=== PATIENT | female | born 1935 | race Caucasian/White ===

== ENCOUNTER 2017-03-01 07:38 | Inpatient (IN) | payer MEDICARE ==
[~2017-03-01] VITALS: Ht 157.5 cm; Wt 84.8 kg
[~2017-03-01 07:38] MED LIST: AMIT50TA PO; ATOR10TA PO; CHOL20003 PO; DILT120C PO; FURO-80 PO; FURO40TA4 PO; OMEP20CA12 PO; POTA20PA8 PO; POTA20TA14 PO; WARF3TAB7 PO; [UNRECOGNIZED DRUG - CODE] PO
--- NOTE | 2017-03-01 07:45 | NUR ---
ARRIVAL PT AMBULATED FAIRLY WELL WITH A WALKER ACCOMPANIED BY DAUGHTERS. PT ALERT AND COOP. MILD DISTRESS NOTED. ATTEMPTED TO OBTAIN URINE SAMPLE. PT UNABLE AT THIS TIME. PT PLACED ON MONITOR AND TRIAGE DONE
[2017-03-01 08:47] LABS: BASOPHIL % 0.5 % (0.0-0.2); EOSINOPHIL # 0.1 10^3/uL (0.0-0.2); EOSINOPHIL % 2.1 % (0.0-5.0); HEMATOCRIT 33.5 % (36.0-46.0); LYMPHOCYTES # 0.7 10^3/uL (1.0-4.8); LYMPHOCYTES % 11.4 % (24.0-44.0); MEAN CELL HGB 30.1 pg (26-34); MEAN CELL HGB CONCENTRATION 32.8 g/dL (33-37); MEAN CORP VOLUME 91.8 fL (78-100); MEAN PLATELET VOLUME 9.5 fL (7.8-11.0); MONOCYTES # 0.7 10^3/uL (0.3-0.8); MONOCYTES % 10.9 % (5.0-12.0); NEUTROPHIL # 4.6 10^3/uL (1.8-7.7); NEUTROPHILS % 74.9 % (41.0-85.0); RED CELL DISTRIBUTION WIDTH 15.1 % (11.5-14.5); WHITE BLOOD CELL 6.2 10^3/uL (4.5-11.0)
--- NOTE | 2017-03-01 09:11 | ER.PDOC ---
General Chief Complaint: Fever Stated Complaint: COUGH,LOW BACK PAIN Time seen by MD: 09:10 Source: patient Exam Limitations: no limitations History of Present Illness Initial Comments Cough and low back pain since yesterday. Timing/Duration: abrupt Severity: moderate Associated Symptoms: cough Allergies: Coded Allergies: erythromycin base (Verified Allergy, Severe, BLACK STOOL, 03/13/16) Sulfa (Sulfonamide Antibiotics) (Verified Allergy, Unknown, BLACK STOOL, ) Home Meds Reported Medications Potassium Chloride (POTASSIUM CHLORIDE) 20 Meq Tab.er.prt, 20 MEQ PO DAILY, #30 1 Refill 08/04/16 Furosemide (LASIX) 40 Mg Tablet, 1 TAB PO DAILY, #30 TAB 5 Refills 08/04/16 Cholecalciferol (Vitamin D3) (VITAMIN D-3) 2,000 Unit Capsule, 1000 UNIT PO DAILY, CAPSULE 08/03/16 Calcium Carbonate/Vitamin D3 (CALCIUM 500 + VIT D CAPLET) 1 Each Tablet, 1 EACH PO TID, TABLET 08/03/16 Omeprazole (OMEPRAZOLE) 20 Mg Capsule.dr, 1 CAP PO DAILY, #90 CAP 3 Refills 08/03/16 Atorvastatin 10MG (LIPITOR 10MG) 10 Mg Tablet, 1 TAB PO DAILY, #90 TAB 3 Refills 08/03/16 Amitriptyline Hcl (AMITRIPTYLINE HCL) 50 Mg Tablet, 1 TAB PO HS, #30 TAB 2 Refills 08/03/16 Diltiazem Hcl (DILTIAZEM 24HR ER) 120 Mg Cap.er.24h, 1 CAP PO DAILY, #90 CAP 3 Refills 08/03/16 Warfarin Sodium (WARFARIN SODIUM) 3 Mg Tablet, 1 TAB PO DAILY, #90 TAB 3 Refills 08/03/16 Constitutional: no symptoms reported Respiratory: see HPI Cardiovascular: no symptoms reported Gastrointestinal: no symptoms reported Genitourinary: no symptoms reported Musculoskeletal: see HPI All Other Systems: Reviewed and Negative Past Medical History Medical History: arrhythmia, congestive heart failure, diabetes, high cholesterol, hypertension Surgical History: cancer surgery, hysterectomy LMP (females 10-50): postmenopause Social History Smoking: non-smoker Alcohol Use: none Drug Use: none Physical Exam General Appearance: alert, no distress Nose: nose nml Throat: pharynx nml, airway nml Neck: nml inspection, supple Respiratory: no resp.distress, breath sounds nml Abdomen: non-tender, no organomegaly CVS: reg rate & rhythm, heart sounds nml Skin: color nml, no rash, warm/dry Extremities: non-tender, nml ROM, no pedal edema NEURO/PSYCH: oriented x 3, CN's nml as tested, motor nml, sensation nml, mood/ affect nml Comments Tenderness to L spine Results/Orders Results/Orders Laboratory Tests Test 03/01/17 08:39 White Blood Count 6.2 10^3/uL (4.5-11.0) Red Blood Count 3.65 10^6/uL (4.00-5.20) Hemoglobin 11.0 g/dL (12.0-15.0) Hematocrit 33.5 % (36.0-46.0) Mean Corpuscular Volume 91.8 fL (78-100) Mean Corpuscular Hemoglobin 30.1 pg (26-34) Mean Corpuscular Hemoglobin Concent 32.8 g/dL (33-37) Red Cell Distribution Width 15.1 % (11.5-14.5) Platelet Count 284 10^3/uL (150-400) Mean Platelet Volume 9.5 fL (7.8-11.0) Neutrophils (%) (Auto) 74.9 % (41.0-85.0) Lymphocytes (%) (Auto) 11.4 % (24.0-44.0) Monocytes (%) (Auto) 10.9 % (5.0-12.0) Neutrophils # (Auto) 4.6 10^3/uL (1.8-7.7) Lymphocytes # (Auto) 0.7 10^3/uL (1.0-4.8) Monocytes # (Auto) 0.7 10^3/uL (0.3-0.8) Absolute Immature Granulocyte (auto 0.01 10^3 u/L (0-2) Eosinophils % 2.1 % (0.0-5.0) Basophils % 0.5 % (0.0-0.2) Basophils # 0.0 10^3/uL (0.0-0.1) Eosinophil Count 0.1 10^3/uL (0.0-0.2) Prothrombin Time 36.7 SEC (9.8-11.9) Prothromb Time International Ratio 3.4 Activated Partial Thromboplast Time 37.7 SEC (24.67-30.72) D-Dimer 0.35 mg/L (0.19-0.41) Sodium Level 137 mmol/L (132-145) Potassium Level 3.7 mmol/L (3.6-5.2) Chloride Level 101.0 mmol/L (96-109) Carbon Dioxide Level 27.3 mmol/L (20.0-32) Anion Gap 12.4 Blood Urea Nitrogen 15 mg/dL (7-18) Creatinine 1.07 mg/dL (0.59-1.40) Estimated GFR () 59.6 BUN/Creatinine Ratio 14.0 Glucose Level 115 mg/dL (70-110) Calculated Osmolality 285.3 Calcium Level 8.7 mg/dL (8.4-10.5) Total Bilirubin 0.4 mg/dL (0.2-1.0) Aspartate Amino Transf (AST/SGOT) 18 U/L (0-35) Alanine Aminotransferase (ALT/SGPT) 17 U/L (12-78) Alkaline Phosphatase 101 U/L (50-136) Total Creatine Kinase 84 U/L (26-192) Creatine Kinase MB 0.9 ng/mL (0.5-3.6) Troponin I < 0.02 ng/mL (0.00-0.05) Pro-B-Type Natriuretic Peptide 2490 pg/mL (0-450) Total Protein 7.1 g/dL (6.4-8.2) Albumin 3.1 g/dL (3.4-5.0) Globulin 4.0 Percent Immature Gran (Cell Imm) 0.20 % (0.00-0.50) Helicobacter pylori Screen Negative (NEGATIVE) EKG/XRAY/CT/US XRAY: chest (Right perihilar infiltrate) Departure Time of Disposition: 10:34 Disposition: 09 ADMITTED INPATIENT Impression: Primary Impression: Pneumonia Qualified Codes: J18.9 - Pneumonia, unspecified organism Condition: Stable Referrals: MAURY PIMENTEL MD (PCP) PRIMARY CARE PROVIDER Comments Admitted to Dr. aRoul BLACKWELL,NADIA Bledsoe MD Mar 01, 2017 09:11
[2017-03-01 09:15] LABS: ALANINE AMINOTRANSFERASE 17 U/L (12-78); ALKALINE PHOSPHATASE 101 U/L (50-136); ASPARTATE AMINO TRANSFERASE 18 U/L (0-35); CALCIUM 8.7 mg/dL (8.4-10.5); CARBON DIOXIDE 27.3 mmol/L (20.0-32); GLUCOSE 115 mg/dL (70-110)
--- NOTE | 2017-03-01 09:28 | DIREP ---
PROCEDURE:XRAY SPINE LUMBAR 2-3 VWS COMPARISON:None. INDICATIONS:BACK PAIN FINDINGS: ALIGNMENT:4 mm anterolisthesis of L4 on L5. VERTEBRAE:Anterior osteophyte formation from L2 through L5. Marked narrowing of the interspinous distance from L1 through L5 consistent with Baastrup's disease. DISK SPACES:Narrowing at L2-3, L3-4 and L4-5. SACROILIAC JOINTS:Normal. OTHER:Extensive calcification of the aorta and iliac vessels. CONCLUSION: 1. No acute abnormalities. 2. 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 on 03/01/2017 at 09:24 AM
--- NOTE | 2017-03-01 09:30 | DIREP ---
PROCEDURE:CHEST 1 VIEW COMPARISON:None. INDICATIONS:BACK PAIN/COUGH FINDINGS: LUNGS/PLEURA:There is right perihilar infiltrate. Surgical clips overlying the left hilum. VASCULATURE:Normal. Unremarkable pulmonary vasculature. CARDIAC:Normal. No cardiac silhouette abnormality or cardiomegaly. MEDIASTINUM:Left-sided port line in place with tip in the superior vena cava. Calcified aortic arch. BONES:Normal. No fracture or visible bony lesion. OTHER:Negative. CONCLUSION:There is a new right perihilar infiltrate as compared to previous study. Dictated by: Alec Parrish M.D. on 03/01/2017 at 09:28 AM
--- NOTE | 2017-03-01 09:39 | NUR ---
DR KEEGAN LONG MBA ON PHONE WITH DR ALLISON FOR POSSIBLE ADMISSION
[2017-03-01] MEDS ORDERED: LEVAQUIN 150 ML IV ONE ×2 (10:00→10:43)
--- NOTE | 2017-03-01 10:10 | NUR ---
PORT POWER PORT ACCESSED VIA STERILE TECHNIQUE USING 20 GAUGE, 3/4 INCH ACCESS NEEDLE. PORT FLUSHED WITH SALINE, BLOOD DRAWN FOR LAB AFTER 10 CC WASTE. PT TOLERATED WELL. SALINE LOCKED.
[2017-03-01] MEDS ORDERED: ZOFRAN ODT ONE (10:43)
--- NOTE | 2017-03-01 10:50 | PRM.ACF1 ---
Admission Criteria Forms PNEUMONIA, COMMUNITY ACQUIRED Clinical Indications for Admission to Inpatient Care (Place 'X' for any and all applicable criteria): Admission to inpatient status for two midnights or more is indicated for ANY ONE of the following (1)(2)(3): [ ]I. Hypoxia [ ]II. Hemodynamic instability [ ]III. Altered mental status that is severe or persistent [ ]IV. Dehydration that is severe or persistent. [ ]V. Bacteremia [X]. Moderate-risk or high-risk category patients (Pneumonia Severity Index ( PSI) class IV or V, or CURB-65 score of 3 or greater). [ ]VII. Intermediate-risk category patients (e.g., PSI class III or CURB-65 score 2) who do not improve with outpatient and observation care treatment [ ]VIII. Outpatient treatment failure as indicated by 1 or more of the following(9): [ ]a) Failure to respond to antibiotic (eg, resistant organism) [ ]b) Clinically significant adverse effects from medication (eg, vomiting) [ ]c) Complications of pneumonia (eg, empyema, bacteremia) [ ]d) Significant worsening of comorbid cond necessitating inpatient care (eg, chronic heart failure) [ ]IX. Appropriate diagnostic testing and treatment unavailable in outpatient or recovery facility (eg, testing or infection control measures unavailable) [ ]X. Respiratory finding (eg. tachypnea) that do not respond to outpatient observation care treatment [ ]XI. Complicated pleural effusions (eg, emphysema, exudative, loculated) [ ]XII. Immunocompromised patients (e.g., AIDS, chronic steroid use) at moderate or high risk based on clinical evaluation. Extended stay beyond goal length of stay may be needed for (20) [ ]a) Unclear diagnosis [ ]b) Pleural disease [ ]c) Severe pneumonia or treatment failure [ ]d) Respiratory failure [ ]e) New onset hyponatremia (serum Na concentration less than 135 mEq/L(mmol/ L) [ ]f) Clinically significant comorbid illness (eg, heart failure, atrial fibrillation with rapid heart rate, alcohol withdrawal, renal insufficiency)(34)(35) [ ]g) Comorbid acute exacerbation of COPD(36) [ ]h) Concomitant diagnosis of malignancy [ ]i) Concomitant altered mental status [ ]j) Culture-identified Gram-negative or antibiotic-resistant organism (eg, Pseudomonas, methicillin-resistant Staphylococcus aureus MRSA)(30) [ ]k) Healthcare-associated pneumonia (36) The original [facility] content created by Kaylene Barnes has been revised. The portions of the content which have been revised are identified through the use of italic text, and Kaylene Barnes has neither reviewed nor approved the modified material. All other unmodified content is copyright [facility]. Please see references footnoted in the original [facility] [employer] edition 2015 Is AC/Kaylene's added/comple: YES MARYCRUZ NAVA Mar 01, 2017 10:50
[2017-03-01] MEDS: TYLENOL PO PRN ×2 (10:51→19:40)
[2017-03-01] MEDS ORDERED: ZOFRAN IV PRN (11:00)
[2017-03-01] MEDS: LEVAQUIN 100 ML IV SCH (11:13)
[2017-03-01] MEDS ORDERED: CYCL5TAB PO (11:23)
[2017-03-01] MEDS ORDERED: ONDA8TAB16 PO (11:23)
[2017-03-01] MEDS ORDERED: WARF3TAB7 PO (11:23)
[2017-03-01] MEDS ORDERED: DILT120C PO (11:23)
[2017-03-01] MEDS ORDERED: POTA20TA14 PO (11:23)
[2017-03-01] MEDS ORDERED: WARF2TAB7 PO (11:23)
[2017-03-01] MEDS ORDERED: FURO20TA3 PO (11:23)
--- NOTE | 2017-03-01 11:50 | NUR ---
ARRIVED TO UNIT PT ARRIVED ON UNIT AT THIS TIME. PT ARRIVED VIA WHEELCHAIR BUT FAMILY BROUGHT ROLLING WALKER THAT PT NORMALLY USED AND PLACED IN ROOM. PT REQUESTED BRIEF AT TIME OF ARRIVAL D/T COUGHING AND STRESS INCONTINENCE. THIS NURSE OBTAINED BRIEF AND HELPED ASSIST PT WITH BRIEF. PT WITH LEVAQUIN RUNNING AT THIS TIME VIA PORTACATH TO LEFT CHEST. PT VOICED NO PAIN AT TIME OF ARRIVAL. FAMILY ACCOMPANIED PT IN ROOM. PT ORIENTED TO ROOM AND CALL LIGHT AND TV. CALL LIGHT IN REACH. WILL CONT TO MONITOR.
[2017-03-01 12:01] VITALS: BP 132/78
[2017-03-01] MEDS: CALTRATE PO SCH ×2 (14:35→21:09)
[2017-03-01] MEDS: [UNRECOGNIZED DRUG - OTHER] PO SCH ×2 (14:35→21:09)
[2017-03-01 16:59] VITALS: BP 112/53
[2017-03-01] MEDS: ROBITUSSIN AC PO PRN ×2 (17:29→21:09)
[2017-03-01 20:06] VITALS: BP 113/54
[2017-03-01 20:08] VITALS: BP 126/86
[2017-03-01] MEDS: ELAVIL PO SCH (21:09)
[2017-03-01] MEDS ORDERED: LIPITOR ONE (21:13)
[2017-03-01] MEDS: LIPITOR PO SCH (21:15)
--- NOTE | 2017-03-01 21:15 | NUR ---
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
[2017-03-01] MEDS ORDERED: DUONEB 0.5 MG-3 MG/3 ML SOLN IH SCH (22:40)
[2017-03-01] MEDS: DUONEB 0.5 MG-3 MG/3 ML SOLN IH SCH (23:43)
[2017-03-02] VITALS (7 sets, daily range): BP systolic 101–140; BP diastolic 55–73
[2017-03-02] MEDS: DUONEB 0.5 MG-3 MG/3 ML SOLN IH SCH ×4 (02:47→20:47)
[2017-03-02 05:39] LABS: BASOPHIL % 0.5 % (0.0-0.2); EOSINOPHIL # 0.2 10^3/uL (0.0-0.2); EOSINOPHIL % 2.9 % (0.0-5.0); HEMATOCRIT 31.9 % (36.0-46.0); HEMOGLOBIN 10.1 g/dL (12.0-15.0); LYMPHOCYTES # 0.8 10^3/uL (1.0-4.8); MEAN CELL HGB 29.4 pg (26-34); MEAN CELL HGB CONCENTRATION 31.7 g/dL (33-37); MEAN CORP VOLUME 92.7 fL (78-100); MEAN PLATELET VOLUME 9.5 fL (7.8-11.0); MONOCYTES # 0.9 10^3/uL (0.3-0.8); MONOCYTES % 14.7 % (5.0-12.0); NEUTROPHILS % 67.7 % (41.0-85.0); RED CELL DISTRIBUTION WIDTH 15.1 % (11.5-14.5); WHITE BLOOD CELL 5.8 10^3/uL (4.5-11.0)
[2017-03-02 05:51] LABS: CALCIUM 9.1 mg/dL (8.4-10.5); CARBON DIOXIDE 29.2 mmol/L (20.0-32)
--- NOTE | 2017-03-02 07:00 | NUR ---
REPORT RECEIVED FROM MARICHUY MULLIGAN.
--- NOTE | 2017-03-02 07:30 | NUR ---
ASSESSMENT COMPLETED. PATIENT AWAKE AND ALERT. UP TO BATHROOM. REPORTS COUGH AND "FEELING BAD". PATIENT VOICE HOARSE. NOTED LOOSE COUGH BUT REPORTS UNABLE TO PRODUCE SPUTUM. SKIN WARM AND DRY. RESPIRATIONS SLIGHTLY LABORED AFTER AMBULATING TO BATHROOM AND BACK TO BED. LUNG SOUNDS COARSE WITH WHEEZES. PORT PRESENT IN LEFT UPPER CHEST SALINE LOCKED. 02 ON @2L/NC. SR UP X2. CALL LIGHT WITHIN REACH.
--- NOTE | 2017-03-02 08:54 | PRM.CONS ---
History of Present Illness Reason for Consultation: CHF, heart failure with preserved ejection fraction History of Present Illness 81-year-old lady. Last encounter was in July 2016 for management of advanced age to heart failure with preserved EF. Patient is a survivor of breast cancer, was unable to tolerate chemotherapy, finished 10 courses of radiation therapy November 2016. Admitted with a right perihilar pneumonia, elevated proBNP level and shortness of breath with edema. patient was seen and examined, lab results reviewed, proBNP level is elected. Some pulmonary congestion seen on x-ray. Otherwise labs are fine. No leukocytosis patient is considered immune compromised with cancer she was seen and examined. I have discussed the findings, arrange for a repeated echocardiogram. continue diuretic therapy in conjunction with management of pneumonia Past Medical History Cardiovascular: CHF ( advanced stage II heart failure with preserved ejection fraction), Hyperlipidemia Pulmonary: Asthma Heme/Onc: Cancer Musculoskeletal: Chronic Low Back Pain Ab: Cooperative/Pleasant Past Surgical History: Breast Biopsy, Other ( radiation therapy for breast cancer) Past Social History Smoke: No Alcohol: none Lives: with Family Travel Hx EBOLA RISK:Travel to/contact w: No Is pt experiencing any Ebola s: No Review of Systems Constitutional: Chills, Weakness, Malaise Eyes: No: Pain, Vision change, Conjunctivae inflammation, Eyelid inflammation, Other, Redness Respiratory: Cough, Shortness of breath, SOB with excertion Cardiovascular: Edema ( bilateral lower extremity), No: Chest Pain, Palpitations, Orthopnea, Paroxysmal Noc. Dyspnea, Lt Headedness, Other Gastrointestinal: No: Nausea, Vomiting, Abdominal Pain, Diarrhea, Constipation , Melena, Hematochezia, Other Genitourinary: No Dysuria, No Frequency, No Incontinence, No Hematuria, No Retention, No Other Musculoskeletal: No: other, neck pain, shoulder pain, arm pain, back pain, hand pain, leg pain, foot pain Allergies: Coded Allergies: erythromycin base (Verified Allergy, Severe, BLACK STOOL, 03/13/16) Sulfa (Sulfonamide Antibiotics) (Verified Allergy, Unknown, BLACK STOOL, ) Scheduled Amitriptyline Hcl (Amitriptyline Hcl), 1 TAB PO HS, (Reported) Atorvastatin 10MG (Lipitor 10MG), 1 TAB PO DAILY, (Reported) Calcium Carbonate/Vitamin D3 (Calcium 500 + Vit D Caplet), 1 EACH PO TID, ( Reported) Cholecalciferol (Vitamin D3) (Vitamin D-3), 1,000 UNIT PO DAILY, (Reported) Cyclobenzaprine Hcl (Flexeril), 1 TAB PO BID, (Reported) Diltiazem Hcl (Diltiazem 24HR Er), 1 CAP PO DAILY, (Reported) Furosemide (Furosemide), 1 TAB PO DAILY, (Reported) Omeprazole (Omeprazole), 1 CAP PO DAILY, (Reported) Potassium Chloride (Potassium Chloride), 1 TAB PO DAILY, (Reported) Warfarin Sodium (Warfarin Sodium), 2 TAB PO MON, WED, FRI, (Reported) Warfarin Sodium (Warfarin Sodium), 1 TAB PO TUE, THUR, SAT, SUN, (Reported) Scheduled PRN Ondansetron (Ondansetron Odt), 8 MG PO TID PRN for PAIN, (Reported) Discontinued Medications Diltiazem Hcl (Diltiazem 24HR Er), 1 CAP PO DAILY, (Reported) Discontinued Reason: Discontinue Furosemide (Lasix), 1 TAB PO DAILY, (Reported) Discontinued Reason: Discontinue Potassium Chloride (Potassium Chloride), 20 MEQ PO DAILY, (Reported) Discontinued Reason: Discontinue Warfarin Sodium (Warfarin Sodium), 1 TAB PO DAILY, (Reported) Discontinued Reason: Discontinue VTE VTE Risk Total Score: 3 VTE Risk Score VTE Risk: Score 0-1 = Low Risk (Aggressive mobilization; early ambulation; no VTE prophylaxis required) Score 2: Moderate Risk (Intermittent/Pneumatic Compression Device OR Lovenox/Heparin/Coumadin) Score 3-4: High Risk (Intermittent/Pneumatic Compression Device AND Lovenox/Heparin/Coumadin) Score > or =5: Highest Risk (Intermittent/Pneumatic Compression Device AND Lovenox/Heparin/Coumadin) Antico:Hep/LMWH/Coum/Xarelto: Yes VTE VTE Present on Admission: Yes Currently receiving anticoagul: Yes VTE Risk Total Score: 3 Exam Vital Signs Vital Signs Date Time Temp Pulse Resp B/P (MAP) Pulse Ox O2 Delivery O2 Flow Rate FiO2 03/02/17 08:36 93 16 94 03/02/17 08:27 Room Air 21 03/02/17 05:18 97.7 113/57 (75) General Appearance: Alert, Oriented X3 HEENT: Atraumatic, Other (minimally elevated JVD) Respiratory: Clear to auscultation, Other (right-sided rhonchi) Cardiovascular: Regular rate Abdominal: Normal bowel sounds Extremities: No clubbing, No cyanosis, Other ( trace bilateral ankle edema) Assessment/Plan Assessment/Plan Assessment/Plan - heart failure with preserved ejection fraction, acute exacerbation. - Lung cancer, considered immunocompromised - right perihilar pneumonia - hypertension - recent radiation therapy, finished November 2016 for breast cancer Problems: Patient History: Patient reports no known family medical history. MAURY PIMENTEL MD Mar 02, 2017 08:54
--- NOTE | 2017-03-02 10:10 | DIREP ---
PROCEDURE:CT CHEST W/O COMPARISON:[facility], CR, XRAY CHEST SINGLE VW, 08/03/2016, 01:39 PM. [facility], CR, XRAY CHEST SINGLE VW, 03/01/2017, 08:36 AM. INDICATIONS:CHF, breast cancer TECHNIQUE:Helical sections through the chest were performed from the lung apices through the diaphragms without IV contrast. Sagittal and coronal reconstructions are obtained from source images. The study was reviewed on abdominal, lung, liver and bone windows. FINDINGS: LUNGS:A bilobed right perihilar mass noted. The mass in the upper part of the right hilum measures 5.1 x 3.6 cm in size, and the inferior mass measures 3.6 x 4.4 cm in size. There may be surrounding obstruction, or atelectasis/pneumonia. A small right-sided pleural effusion is seen. There is interstitial prominence surrounding the right aissatou, question interstitial spread of disease. A transbronchial biopsy is recommended. No nodules are seen in the left lung. The mass appears to invade the mediastinum in the region of the right hilum. PLEURA:Small right-sided pleural effusion seen. CARDIAC:Coronary artery calcifications seen in the LAD. MEDIASTINUM:Normal. No mass or adenopathy. AISSATOU:Normal. No mass or adenopathy. AORTA:Normal. No aneurysm. Atheromatous calcifications in the aorta. CHEST WALL:Normal. No mass or axillary adenopathy. LIMITED ABDOMEN:Small calcified gallstone noted. BONES:Normal. No bony lesion or fracture. No bony metastases. OTHER:Negative. CONCLUSION:A bilobed right perihilar mass lesion with postobstructive pneumonia or atelectasis. Interstitial prominence surrounding the right aissatou, question interstitial spread of disease. Small right-sided pleural effusion seen. A transbronchial biopsy of the right perihilar mass lesion is recommended. Dictated by: Marcelo Felton MD on 03/02/2017 at 10:04 AM
--- NOTE | 2017-03-02 10:41 | HPH ---
ADMIT DATE: 03/01/2017 CHIEF COMPLAINT: Cough and fever. HISTORY OF PRESENT ILLNESS: The patient is a very pleasant 81-year-old woman with a past medical history significant for congestive heart failure, diastolic dysfunction, hyperlipidemia, hypertension, chronic atrial fibrillation, history of breast cancer, who presented to the ER with complaints of cough and fever. She also had some low back pain which is chronic for her. She also has a history of diabetes, which is diet controlled at this point. She has a history of CHF, diastolic dysfunction, but denies any significant increase or change in water intake or urine output. She has history of breast cancer and has had radiation therapy. She has not been on any recent chemotherapy. She has had some chest wall pain from the cough. The symptoms have been present for a couple of days and have worsened over the last 24 hours. Workup in the ER did reveal she had a right perihilar infiltrate. She was started on IV antibiotics and blood cultures were drawn in the Emergency Room. PAST MEDICAL HISTORY: Includes chronic atrial fibrillation, congestive heart failure, diastolic dysfunction, diabetes mellitus type 2, hyperlipidemia, hypertension, history of breast cancer. PAST SURGICAL HISTORY: She has had surgery for cancer. She has also had hysterectomy. ALLERGIES: ALLERGIC TO ERYTHROMYCIN AND SULFA. HOME MEDICATIONS: List includes potassium 20 mEq daily, Lasix 40 mg daily, vitamin D3 daily, calcium plus D daily, omeprazole 20 mg daily, atorvastatin 10 mg daily, amitriptyline 50 mg at night, Diltiazem 120 mg daily. Warfarin, she takes 3 mg on Tuesday, , Tuesday, and Tuesday and on other day she takes 2 mg. SOCIAL HISTORY: She denies any alcohol, tobacco or illicit drug use history. FAMILY HISTORY: Negative for early coronary artery disease or diabetes. REVIEW OF SYSTEMS: CARDIAC: She denies chest pain. She is having chest wall pain with cough. No shortness of breath or dyspnea on exertion. PULMONARY: Positive for cough, minimally productive, no pleuritic chest pain. GASTROINTESTINAL: No nausea, vomiting, diarrhea or constipation. All else negative in 10 point review of system except as in HPI. PHYSICAL EXAMINATION: VITAL SIGNS: Upon arrival to the hospital, height 157.5 cm, weight 80.9 kilograms. Temperature 98.0, pulse of 97, respiratory rate is 24, blood pressure 143/70, O2 saturation 95% on room air. GENERAL: She is alert, in no acute distress at time of exam. HEENT: Pupils equal, round, reactive to light. Sclerae is anicteric. Oropharynx is clear. Mucous membranes are moist. NECK: Supple, no lymphadenopathy. CARDIOVASCULAR: At time of exam was slightly irregular with a rate less than 100. LUNGS: Actually clear bilaterally. No wheezing at time of exam. ABDOMEN: Soft. Bowel sounds are present, nontender to palpation. EXTREMITIES: No cyanosis, clubbing or significant edema. NEUROLOGIC: Grossly nonfocal. INITIAL LABORATORY DATA: CBC: White count is 6.2, hemoglobin 11.0 and platelets 284,000. Differential: 75% neutrophils, 11% lymphocytes, 11% monocytes. Sodium 137, potassium 3.7, chloride 101, CO2 is 27, BUN 15, creatinine 1.07, glucose 115, calcium is 8.7, total bilirubin 0.4, AST is 18, ALT is 17, alkaline phosphatase 101, total CK is 84, CK-MB is 0.9, troponin I is less than 0.02, proBNP is 2490, total protein 7.1, albumin 3.1. Her INR is 3.4, D-dimer is 0.35. H. pylori is negative. IMAGING STUDIES: Chest x-ray performed in the Emergency Room reveals a right perihilar infiltrate. Lumbar spine x-ray shows degenerative disc disease L2-L3 to L4-L5. ASSESSMENT AND PLAN: The patient is an 81-year-old woman here with community-acquired pneumonia meeting criteria for sepsis with SIRS criteria being tachycardia and tachypnea, the source being pneumonia with anemia of chronic disease, hypertension, hyperlipidemia, congestive heart failure, diastolic dysfunction with some mild volume overload. 1. She does meet SIRS criteria for sepsis, but will not volume resuscitate at this point because she is actually already volume overloaded with congestive heart failure, diastolic dysfunction with [id number] diastolic dysfunction with proBNP of over 2000 and some signs of some mild vascular congestion. 2. ID: We will continue IV Levaquin started in the Emergency Room. 3. Continue current cardiovascular medications. 4. She has hypoprothrombinemia. We will hold warfarin for 1 day and restart tomorrow. Her INR was slightly above therapeutic range. 5. She has a history of breast cancer, outpatient follow up after treatment for pneumonia to assess lung parenchyma. 6. DVT prophylaxis, she is on warfarin. 7. Appropriate p.r.n. pain and nausea medication. 8. She has chronic hypoxic respiratory failure with oxygen at night. We will continue her oxygen protocol. 9. Time spent with the patient on 03/01/2017 was 45 minutes. This plan was discussed with the patient. She is her own decision maker. She does understand and concur with plans. Ajay Silveira MD DR: GISELA/abel JOB# [id number] [facility]
[2017-03-02] MEDS: ROBITUSSIN AC PO PRN ×3 (10:52→23:12)
[2017-03-02] MEDS: TYLENOL PO PRN ×2 (10:53→23:12)
[2017-03-02] MEDS: KLOR-CON 10 PO SCH (10:54)
[2017-03-02] MEDS: CARDIZEM CD PO SCH (10:54)
[2017-03-02] MEDS: LASIX PO SCH (10:54)
[2017-03-02] MEDS: VITAMIN D PO SCH (10:54)
[2017-03-02] MEDS: CALTRATE PO SCH ×3 (10:55→20:30)
[2017-03-02] MEDS: [UNRECOGNIZED DRUG - OTHER] PO SCH ×3 (10:55→20:30)
[2017-03-02] MEDS: LASIX IV SCH (10:55)
[2017-03-02] MEDS: LEVAQUIN 100 ML IV SCH (10:55)
--- NOTE | 2017-03-02 10:55 | NUR ---
MEDICATED WITH ROBITUSSIN WITH CODEINE FOR COUGH AND TYLENOL FOR HEADACHE.
[2017-03-02] MEDS ORDERED: NS 250ML 250 ML IV ONE (10:59)
--- NOTE | 2017-03-02 11:06 | NUR ---
DISCHARGE PLANNING: SS VISITED WITH PT REGARDING DISCHARGE PLANNING NEED. PT LIVES HOME ALONE IN [place], [place], BUT IS CURRENTLY HERE VISITING HER DAUGHTER UNTIL NEXT TUESDAY. PT STATED HER WAS A SO HER HOUSE AND SHOWER ARE HANDICAP EQUIP. PT HAS A WALKER WITH SEAT, CANE, SHOWER CHAIR, AND WHEEL CHAIR IN PLACE AT HOME SHE USES NEEDED. PT HAS O2 IN PLACE SHE WEARS AT NIGHT. PT STATED SHE HAD HER LAST CHEMO TREATMENT November, AND HAS A PET SCAN NEXT TUESDAY TO SEE IF THE CHEMO WORKED OR IF SHE WILL NEED ADDITIONAL TREATMENT. PT DENIES NEEDING ADDITIONAL RESOURCES AT THIS TIME. PT SAFETY HANDOUT ADDRESSED, NO QUESTIONS ASKED, UNDERSTANDING VERBALIZED. CONTACT INFORMATION PROVIDED. SS TO CONTINUE TO FOLLOW AND MONITOR DISCHARGE PLANNING NEEDS.
[2017-03-02] MEDS: PROTONIX PO SCH (11:16)
--- NOTE | 2017-03-02 14:41 | NUR ---
PATIENT REPORTS COUGHING UP SMALL AMOUNT GREENISH SPUTUM. CONTINUING TO COUGH. USING FLUTTER VALVE INTERMITTENTLY. REPORTS RELIEF FROM HEADACHE.
--- NOTE | 2017-03-02 18:40 | NUR ---
report recieved report took over care
--- NOTE | 2017-03-02 19:22 | NUR ---
assessment into asses patient, no ss of distress noted at this time. patient states no pain and no needs. patietns call light in reach
[2017-03-02] MEDS: ELAVIL PO SCH (20:30)
--- NOTE | 2017-03-02 21:10 | NUR ---
medications into give patients medications, no other needs expressed at this time.
--- NOTE | 2017-03-02 23:00 | NUR ---
patient called for tylenol, 1000mg of tylenol given will reassess headache
--- NOTE | 2017-03-03 01:00 | NUR ---
reassessed headache patient states no headache at this time will cont to monitor
[2017-03-03] MEDS: DUONEB 0.5 MG-3 MG/3 ML SOLN IH SCH ×4 (02:58→20:40)
--- NOTE | 2017-03-03 03:17 | PNH ---
DATE: 03/02/2017 SUBJECTIVE: She states she feels better. She still has a cough, but it has improved. She denies any pain. She is tolerating diet well. OBJECTIVE: VITAL SIGNS: T-max last 24 hours 99.0, pulse 91, respiration rate 16, blood pressure 101/55, O2 saturation 96% on room air. GENERAL: She is alert, oriented, in no acute distress at time of exam. HEENT: Pupils equal, round, reactive to light. Sclerae is anicteric. Oropharynx is clear. Mucous membranes are moist. NECK: Supple, no lymphadenopathy. CARDIOVASCULAR: At time of exam was regular rate and rhythm. LUNGS: Clear bilaterally. No wheezing. ABDOMEN: Soft. Bowel sounds are present, nontender to palpation. EXTREMITIES: No cyanosis, clubbing or edema. NEUROLOGIC: Grossly nonfocal. LABORATORY DATA: CBC: White count 5.8, hemoglobin 10.1 and platelets 270,000. Differential: 68% neutrophils, 14% lymphocytes, 15% monocytes. Sodium 137, potassium 3.7, chloride 103, CO2 is 29, BUN 14, creatinine 1.1, glucose 121, calcium is 9.1. CT chest was performed, which did reveal concerns for a perihilar mass with postobstructive pneumonia. ASSESSMENT AND PLAN: This patient is an 81-year-old woman here with history of breast cancer with postobstructive pneumonia meeting criteria for sepsis, although SIRS criteria are resolving with hypertension, hyperlipidemia, anemia of chronic disease. 1. Continue his current cardiovascular medications. 2. Pulmonary: We will continue IV antibiotics, she will have to follow up as an outpatient for possible biopsy once pneumonia is treated. The patient with history of breast cancer. 3. Diet as tolerated. 4. Appropriate p.r.n. pain and nausea medications. 5. DVT prophylaxis - she is on warfarin. Time spent with the patient is 25 minutes on 03/02/2017. Ajay Silveira MD DR: GISELA/abel JOB# [id number] JOSE MIGUEL
[2017-03-03 04:09] VITALS: BP 118/56
--- NOTE | 2017-03-03 04:39 | NUR ---
assessed patient no ss of distress noted, patient asleep in bed respirations even and non labored
[2017-03-03 05:45] LABS: BASOPHIL % 0.5 % (0.0-0.2); EOSINOPHIL # 0.1 10^3/uL (0.0-0.2); EOSINOPHIL % 2.2 % (0.0-5.0); HEMATOCRIT 30.9 % (36.0-46.0); HEMOGLOBIN 9.9 g/dL (12.0-15.0); MEAN CELL HGB 29.6 pg (26-34); MEAN CORP VOLUME 92.2 fL (78-100); MONOCYTES # 0.8 10^3/uL (0.3-0.8); MONOCYTES % 12.9 % (5.0-12.0); NEUTROPHIL # 4.4 10^3/uL (1.8-7.7); NEUTROPHILS % 69.1 % (41.0-85.0); WHITE BLOOD CELL 6.3 10^3/uL (4.5-11.0)
[2017-03-03 06:02] LABS: CALCIUM 9.6 mg/dL (8.4-10.5); CARBON DIOXIDE 28.3 mmol/L (20.0-32)
--- NOTE | 2017-03-03 06:45 | NUR ---
Report Received report and assumed care of pt
--- NOTE | 2017-03-03 08:00 | NUR ---
DISCHARGE PLAN CM VISITED WITH PATIENT AND CONCERNING HIS DISCHARGE PLAN AND NEED. PATIENT IS BACK HOME WITH HIS SINCE DISCHARGE FROM SNF 02/09/17. PATIENTS STATED THEY HAVE ALL DME IN PLACE AND PATIENT DOES NOT CURRENTLY HAVE HH SERVICES. EDUCATION GIVEN REGARDING THE POSSIBILITY OF RETURNING BACK TO SNF DUE TO HOSPITAL ADMISSION AND HH SERVICES AND BENEFITS. SHE STATED PATIENT HAS A UROLOGY APPOINTMENT IN [place] FOR POSSIBLE SX 03/30/17 AND IF SHE FELT PATIENT NEEDED HH AFTER THAT, SHE WOULD NOTIFY THEM HERSELF. CONTACT INFORMATION PROVIDED FOR FUTURE ASSISTANCE. CURRENT GOAL FOR PATIENT IS TO RETURN BACK HOME WITH TO ROUTINE CARE UPON DISCHARGE. CM TO CONTINUE TO FOLLOW. Addendum: 03/03/17 at 1121 by Sravanthi Durham RN - LEESA ZACARIAS WRONG PATIENT DOCUMENTATION.
--- NOTE | 2017-03-03 08:35 | ECHO ---
DATE OF SERVICE: 03/02/2017 INDICATIONS: An 81-year-old lady with history of diastolic heart failure, admitted with acute exacerbation after also finishing radiation therapy course for breast cancer. Therefore, an echocardiographic study was requested to evaluate systolic and diastolic function for change of status and also for any radiation related cardiomyopathy or pericardial pathology. FINDINGS: 1. Study quality was fair. 2. Underlying rhythm is atrial fibrillation. 3. EF is preserved around 60 -65%. No focal wall motion abnormality. There is mild to moderate LVH. No LVOT obstruction seen. LV cavity dimensions were normal measuring 4.5 cm in end diastolic dimension. Fractional shortening was 32%. 4. Right ventricular size and EF were normal. 5. Both atria showed [id number] dilatation. 6. Mitral valve showed tlyp-in-tqakuufm mitral regurgitation, no mitral stenosis. Diastolic abnormality of relaxation seen, unreliable with AFib. No stenosis noted. 7. Pulmonary artery systolic pressure was around 60-65 mmHg, elevated, calculated via bdgywllc-ra-jhrxtt tricuspid regurgitation. 8. Aortic valve is trileaflet, mildly calcified. Aortic valve mean velocity was 1.1 m/sec. Aortic valve area was 1.6 cm2, mild aortic stenosis seen. 9. No pericardial effusion. 10. Inferior vena cava was normal in size at 1.5 cm. IMPRESSION: 1. Preserved LV systolic function, EF around 60%. 2. Moderate concentric LVH. 3. No LVOT obstruction or wall motion abnormality. 4. Normal RV size and EF. 5. Moderately dilated both atria. 6. Mild mitral regurgitation, no stenosis. 7. diastolic abnormality with relaxation suggestive of grade 1 diastolic dysfunction. 8. Mild aortic stenosis, no regurgitation. 9. Severe tricuspid regurgitation with elevated pulmonary artery systolic pressure around 60-65 mmHg. 10. No pericardial effusion. 11. Normal IVC size. 12. Underlying rhythm is atrial fibrillation. Ty Montiel MD DR: DESHAUN/abel JOB# [id number]
[2017-03-03] MEDS: LASIX IV SCH (08:56)
[2017-03-03] MEDS: CALTRATE PO SCH ×3 (08:57→20:39)
[2017-03-03] MEDS: [UNRECOGNIZED DRUG - OTHER] PO SCH ×3 (08:57→20:39)
[2017-03-03] MEDS: LIPITOR PO SCH (08:57)
[2017-03-03] MEDS: PROTONIX PO SCH (08:57)
[2017-03-03] MEDS: CARDIZEM CD PO SCH (08:57)
[2017-03-03] MEDS: LASIX PO SCH (08:57)
[2017-03-03] MEDS: KLOR-CON 10 PO SCH (08:57)
[2017-03-03] MEDS: VITAMIN D PO SCH (08:57)
[2017-03-03 09:04] VITALS: BP 111/63
[2017-03-03] MEDS: LEVAQUIN 100 ML IV SCH (09:48)
[2017-03-03 11:58] VITALS: BP 138/75
[2017-03-03] MEDS ORDERED: TOPROL XL PO STA (12:05)
--- NOTE | 2017-03-03 12:05 | PRM.PN ---
Subjective Subjective Subjective Patient is in A. fib, rate is about 100 - shortness of breath improved - echocardiogram report in chart, confirming diastolic heart failure with early aortic stenosis - with optimize cardiac care for A. fib management, valvular heart disease and diastolic heart failure Patient History: Patient reports no known family medical history. VTE VTE Risk Total Score: 3 VTE Risk Score VTE Risk: Score 0-1 = Low Risk (Aggressive mobilization; early ambulation; no VTE prophylaxis required) Score 2: Moderate Risk (Intermittent/Pneumatic Compression Device OR Lovenox/Heparin/Coumadin) Score 3-4: High Risk (Intermittent/Pneumatic Compression Device AND Lovenox/Heparin/Coumadin) Score > or =5: Highest Risk (Intermittent/Pneumatic Compression Device AND Lovenox/Heparin/Coumadin) Antico:Hep/LMWH/Coum/Xarelto: Yes Review of Systems Constitutional: Chills, Weakness, Malaise Eyes: No: Pain, Vision change, Conjunctivae inflammation, Eyelid inflammation, Other, Redness Respiratory: Cough, Shortness of breath, SOB with excertion Cardiovascular: Edema ( bilateral lower extremity), No: Chest Pain, Palpitations, Orthopnea, Paroxysmal Noc. Dyspnea, Lt Headedness, Other Gastrointestinal: No: Nausea, Vomiting, Abdominal Pain, Diarrhea, Constipation , Melena, Hematochezia, Other Genitourinary: No Dysuria, No Frequency, No Incontinence, No Hematuria, No Retention, No Other Musculoskeletal: No: other, neck pain, shoulder pain, arm pain, back pain, hand pain, leg pain, foot pain Allergies: Coded Allergies: erythromycin base (Verified Allergy, Severe, BLACK STOOL, 03/13/16) Sulfa (Sulfonamide Antibiotics) (Verified Allergy, Unknown, BLACK STOOL, ) Scheduled Amitriptyline Hcl (Amitriptyline Hcl), 1 TAB PO HS, (Reported) Atorvastatin 10MG (Lipitor 10MG), 1 TAB PO DAILY, (Reported) Calcium Carbonate/Vitamin D3 (Calcium 500 + Vit D Caplet), 1 EACH PO TID, ( Reported) Cholecalciferol (Vitamin D3) (Vitamin D-3), 1,000 UNIT PO DAILY, (Reported) Cyclobenzaprine Hcl (Flexeril), 1 TAB PO BID, (Reported) Diltiazem Hcl (Diltiazem 24HR Er), 1 CAP PO DAILY, (Reported) Furosemide (Furosemide), 1 TAB PO DAILY, (Reported) Omeprazole (Omeprazole), 1 CAP PO DAILY, (Reported) Potassium Chloride (Potassium Chloride), 1 TAB PO DAILY, (Reported) Warfarin Sodium (Warfarin Sodium), 2 TAB PO MON, WED, FRI, (Reported) Warfarin Sodium (Warfarin Sodium), 1 TAB PO TUE, THUR, SAT, SUN, (Reported) Scheduled PRN Ondansetron (Ondansetron Odt), 8 MG PO TID PRN for PAIN, (Reported) Discontinued Medications Diltiazem Hcl (Diltiazem 24HR Er), 1 CAP PO DAILY, (Reported) Discontinued Reason: Discontinue Furosemide (Lasix), 1 TAB PO DAILY, (Reported) Discontinued Reason: Discontinue Potassium Chloride (Potassium Chloride), 20 MEQ PO DAILY, (Reported) Discontinued Reason: Discontinue Warfarin Sodium (Warfarin Sodium), 1 TAB PO DAILY, (Reported) Discontinued Reason: Discontinue Objective Vitals and I/O Vital Sign - Last 24 Hours 03/02/17 03/02/17 03/02/17 03/02/17 15:00 15:00 17:00 18:55 Temp 98.6 Pulse 91 98 89 Resp 16 16 18 B/P (MAP) 105/60 (75) Pulse Ox 93 93 91 O2 Delivery Room Air O2 Flow Rate 0.00 03/02/17 03/02/17 03/02/17 03/02/17 19:30 20:47 20:49 21:00 Temp 98.0 Pulse 91 110 110 110 Resp 16 24 24 B/P (MAP) 101/55 (70) Pulse Ox 96 91 91 91 O2 Delivery Room Air 03/02/17 03/03/17 03/03/17 03/03/17 23:47 02:58 03:04 04:09 Temp 98.5 97.9 Pulse 101 99 99 77 Resp 18 16 16 18 B/P (MAP) 140/71 (94) 118/56 (76) Pulse Ox 96 96 96 96 03/03/17 03/03/17 03/03/17 03/03/17 08:40 08:41 08:51 08:56 Pulse 72 72 81 Resp 18 18 18 B/P (MAP) 118/56 Pulse Ox 96 96 98 O2 Delivery Nasal Cannula O2 Flow Rate 2.00 FiO2 28 03/03/17 03/03/17 03/03/17 03/03/17 08:57 08:57 09:04 10:33 Temp 98.1 Pulse 81 76 Resp 16 B/P (MAP) 118/56 118/56 111/63 (79) Pulse Ox 98 O2 Delivery Nasal Canula Nasal Cannula O2 Flow Rate 2.00 03/03/17 11:58 Temp 97.9 Pulse 90 Resp 18 B/P (MAP) 138/75 (96) Pulse Ox 94 O2 Delivery Room Air Intake and Output 03/02/17 03/02/17 03/03/17 15:00 23:00 07:00 Intake Total 240 ml 240 ml 250 ml Output Total 600 ml 600 ml Balance 240 ml -360 ml -350 ml General: Alert Neck: Supple Lungs: Clear to auscultation ( fine rhonchi) Heart: Regular rate ( A. fib rhythm, tachycardia) Abdomen: Normal bowel sounds Extremities: No clubbing Medication Reconciliation Scheduled Amitriptyline Hcl (Amitriptyline Hcl), 1 TAB PO HS, (Reported) Atorvastatin 10MG (Lipitor 10MG), 1 TAB PO DAILY, (Reported) Calcium Carbonate/Vitamin D3 (Calcium 500 + Vit D Caplet), 1 EACH PO TID, ( Reported) Cholecalciferol (Vitamin D3) (Vitamin D-3), 1,000 UNIT PO DAILY, (Reported) Cyclobenzaprine Hcl (Flexeril), 1 TAB PO BID, (Reported) Diltiazem Hcl (Diltiazem 24HR Er), 1 CAP PO DAILY, (Reported) Furosemide (Furosemide), 1 TAB PO DAILY, (Reported) Omeprazole (Omeprazole), 1 CAP PO DAILY, (Reported) Potassium Chloride (Potassium Chloride), 1 TAB PO DAILY, (Reported) Warfarin Sodium (Warfarin Sodium), 2 TAB PO MON, WED, FRI, (Reported) Warfarin Sodium (Warfarin Sodium), 1 TAB PO TUE, THUR, SAT, SUN, (Reported) Scheduled PRN Ondansetron (Ondansetron Odt), 8 MG PO TID PRN for PAIN, (Reported) Discontinued Medications Diltiazem Hcl (Diltiazem 24HR Er), 1 CAP PO DAILY, (Reported) Discontinued Reason: Discontinue Furosemide (Lasix), 1 TAB PO DAILY, (Reported) Discontinued Reason: Discontinue Potassium Chloride (Potassium Chloride), 20 MEQ PO DAILY, (Reported) Discontinued Reason: Discontinue Warfarin Sodium (Warfarin Sodium), 1 TAB PO DAILY, (Reported) Discontinued Reason: Discontinue Assessment/Plan Assessment/Plan Assessment/Plan - paroxysmal A. fib - heart failure with preserved EF, acute extubation - breast cancer status post radiotherapy please see orders - Problems: Patient History: Patient reports no known family medical history. MAURY PIMENTEL MD Mar 03, 2017 12:05
--- NOTE | 2017-03-03 14:20 | NUR ---
Pt status Pt sitting in bed watching TV. No s/s of distress noted. Pt denies pain or needs at this time. Call light within reach.
--- NOTE | 2017-03-03 15:09 | NUR ---
Pt ambulating Pt ambulating in zamudio with walker. Strong steady gait noted. No s/s of distress noted.
[2017-03-03] MEDS ORDERED: COUMADIN PO SCH (17:00)
[2017-03-03 17:45] VITALS: BP 113/55
[2017-03-03 19:44] VITALS: BP 121/73
--- NOTE | 2017-03-03 19:50 | NUR ---
pt was up ambulating around in room, independently, now sitting side of bed using flutter valve and incentive spirometer. tolerating well, noted productive cough. call light in reach
[2017-03-03] MEDS ORDERED: MILK OF MAGNESIA PO ONE (20:30)
[2017-03-03] MEDS: TYLENOL PO PRN (20:39)
[2017-03-03] MEDS: ELAVIL PO SCH (20:39)
[2017-03-04] VITALS: BP 119/64
[2017-03-04] MEDS: DUONEB 0.5 MG-3 MG/3 ML SOLN IH SCH ×2 (03:35→09:01)
[2017-03-04 04:03] VITALS: BP 133/74
--- NOTE | 2017-03-04 06:57 | PNH ---
DATE: 03/03/2017 SUBJECTIVE: She denies any specific complaints, she states she does not feel well. She is ambulating. She actually ambulate without assistance of the nursing staff this afternoon. Cough has improved. No acute events overnight. OBJECTIVE: VITAL SIGNS: T-max last 24 hours is 98.5, pulse of 90, respiratory rate is 18, blood pressure 138/75, O2 saturation 94% on room air. GENERAL: She is alert, in no acute distress at time of exam. HEENT: Pupils equal, round, reactive to light. Sclerae is anicteric. Oropharynx is clear. Mucous membranes are moist. NECK: Supple, no lymphadenopathy. CARDIOVASCULAR: At time of exam was regular rate and rhythm. LUNGS: Clear bilaterally. ABDOMEN: Soft. Bowel sounds are present. EXTREMITIES: No cyanosis, clubbing or significant edema. NEUROLOGIC: Grossly nonfocal. LABORATORY DATA: Today, CBC: White count 6.3, hemoglobin 9.9, platelets 273,000. Differential: 69% neutrophils, 15% lymphocytes, 13% monocytes. Sodium 138, potassium 4.1, chloride 102, CO2 is 28, BUN 15, creatinine 1.1, glucose 120, calcium is 9.6. ASSESSMENT AND PLAN: This patient is an 81-year-old woman here with a right perihilar mass with postobstructive pneumonia with a history of breast cancer. 1. We will continue current IV antibiotics. She is clinically improving. 2. Oxygen protocol as needed. 3. She already has a PET scan scheduled next week. She will followup for PET scan and also for possible pulmonology, followup for bronchoscopy with biopsy for the perihilar mass. 4. Continue her current cardiovascular medications. 5. Appropriate p.r.n. pain and nausea medications. 6. Continue warfarin for now. INR is 2.2. Time spent with the patient is 25 minutes on 03/03/2017. Ajay Silveira MD DR: GISELA/abel JOB# [id number] JOSE MIGUEL
--- NOTE | 2017-03-04 07:02 | NUR ---
REPORT RECEIVED. ASSUMED CARE AT THIS TIME.
[2017-03-04] MEDS ORDERED: POTA10CA PO (08:16)
[2017-03-04] MEDS ORDERED: FURO-81 PO (08:16)
[2017-03-04] MEDS ORDERED: METO50TA4 PO (08:16)
[2017-03-04] MEDS ORDERED: AMOX1TAB63 PO (08:16)
[2017-03-04] MEDS ORDERED: WARF2TAB PO (08:16)
--- NOTE | 2017-03-04 08:21 | PRM.PN ---
Subjective Subjective Subjective Patient seen and examined. A. fib is better controlled with Toprol-XL 50 mg by mouth daily patient reports feeling better discharge instructions discussed with the patient, nursing staff and Dr. Barnett Patient History: Patient reports no known family medical history. VTE VTE Risk Total Score: 3 VTE Risk Score VTE Risk: Score 0-1 = Low Risk (Aggressive mobilization; early ambulation; no VTE prophylaxis required) Score 2: Moderate Risk (Intermittent/Pneumatic Compression Device OR Lovenox/Heparin/Coumadin) Score 3-4: High Risk (Intermittent/Pneumatic Compression Device AND Lovenox/Heparin/Coumadin) Score > or =5: Highest Risk (Intermittent/Pneumatic Compression Device AND Lovenox/Heparin/Coumadin) Antico:Hep/LMWH/Coum/Xarelto: Yes Review of Systems Constitutional: Chills, Weakness, Malaise Eyes: No: Pain, Vision change, Conjunctivae inflammation, Eyelid inflammation, Other, Redness Respiratory: Cough, Shortness of breath, SOB with excertion Cardiovascular: Edema ( bilateral lower extremity), No: Chest Pain, Palpitations, Orthopnea, Paroxysmal Noc. Dyspnea, Lt Headedness, Other Gastrointestinal: No: Nausea, Vomiting, Abdominal Pain, Diarrhea, Constipation , Melena, Hematochezia, Other Genitourinary: No Dysuria, No Frequency, No Incontinence, No Hematuria, No Retention, No Other Musculoskeletal: No: other, neck pain, shoulder pain, arm pain, back pain, hand pain, leg pain, foot pain Allergies: Coded Allergies: erythromycin base (Verified Allergy, Severe, BLACK STOOL, 03/13/16) Sulfa (Sulfonamide Antibiotics) (Verified Allergy, Unknown, BLACK STOOL, ) Scheduled Amitriptyline Hcl (Amitriptyline Hcl), 1 TAB PO HS, (Reported) Amoxicillin/Potassium Clav (Augmentin 875-125 Tablet), 1 EACH PO BID Atorvastatin 10MG (Lipitor 10MG), 1 TAB PO DAILY, (Reported) Calcium Carbonate/Vitamin D3 (Calcium 500 + Vit D Caplet), 1 EACH PO TID, ( Reported) Cholecalciferol (Vitamin D3) (Vitamin D-3), 1,000 UNIT PO DAILY, (Reported) Cyclobenzaprine Hcl (Flexeril), 1 TAB PO BID, (Reported) Diltiazem Hcl (Diltiazem 24HR Er), 1 CAP PO DAILY, (Reported) Furosemide (Furosemide), 1 TAB PO DAILY, (Reported) Furosemide (Lasix), 20 MG PO DAILY Metoprolol Succinate (Toprol Xl), 50 MG PO DAILY Omeprazole (Omeprazole), 1 CAP PO DAILY, (Reported) Potassium Chloride (Potassium Chloride), 1 TAB PO DAILY, (Reported) Potassium Chloride (Potassium Chloride), 10 MEQ PO DAILY Warfarin Sodium (Coumadin), 2 MG PO 17 Scheduled PRN Ondansetron (Ondansetron Odt), 8 MG PO TID PRN for PAIN, (Reported) Discontinued Medications Diltiazem Hcl (Diltiazem 24HR Er), 1 CAP PO DAILY, (Reported) Discontinued Reason: Discontinue Furosemide (Lasix), 1 TAB PO DAILY, (Reported) Discontinued Reason: Discontinue Potassium Chloride (Potassium Chloride), 20 MEQ PO DAILY, (Reported) Discontinued Reason: Discontinue Warfarin Sodium (Warfarin Sodium), 1 TAB PO DAILY, (Reported) Discontinued Reason: Discontinue Warfarin Sodium (Warfarin Sodium), 2 TAB PO MON, WED, FRI, (Reported) Discontinued Reason: HOLD Warfarin Sodium (Warfarin Sodium), 1 TAB PO TUE, THUR, SAT, SUN, (Reported) Discontinued Reason: HOLD Objective Vitals and I/O Vital Sign - Last 24 Hours 03/03/17 03/03/17 03/03/17 03/03/17 08:40 08:41 08:51 08:56 Pulse 72 72 81 Resp 18 18 18 B/P (MAP) 118/56 Pulse Ox 96 96 98 O2 Delivery Nasal Cannula O2 Flow Rate 2.00 FiO2 28 03/03/17 03/03/17 03/03/17 03/03/17 08:57 08:57 09:04 10:33 Temp 98.1 Pulse 81 76 Resp 16 B/P (MAP) 118/56 118/56 111/63 (79) Pulse Ox 98 O2 Delivery Nasal Canula Nasal Cannula O2 Flow Rate 2.00 03/03/17 03/03/17 03/03/17 03/03/17 11:58 12:31 14:09 14:15 Temp 97.9 Pulse 90 90 71 76 Resp 18 18 18 B/P (MAP) 138/75 (96) 138/75 Pulse Ox 94 89 91 O2 Delivery Room Air 03/03/17 03/03/17 03/03/17 03/03/17 17:45 19:44 19:45 20:40 Temp 98.8 97.7 Pulse 79 84 79 Resp 18 18 18 B/P (MAP) 113/55 (74) 121/73 (89) Pulse Ox 91 99 98 O2 Delivery Room Air Nasal Cannula O2 Flow Rate 2.00 03/03/17 03/03/17 03/04/17 03/04/17 20:41 20:49 00:00 03:36 Temp 98.1 Pulse 79 79 75 69 Resp 16 16 18 16 B/P (MAP) 119/64 (82) Pulse Ox 98 98 95 95 O2 Delivery Nasal Cannula O2 Flow Rate 2.00 03/04/17 03/04/17 03:43 04:03 Temp 98.1 Pulse 69 66 Resp 16 18 B/P (MAP) 133/74 (93) Pulse Ox 95 96 Intake and Output 03/03/17 03/03/17 03/04/17 14:59 22:59 06:59 Intake Total 240 ml 360 ml Output Total 400 ml 400 ml Balance -160 ml -40 ml HEENT: Atraumatic Neck: Supple Lungs: Clear to auscultation ( fine rhonchi) Heart: Regular rate ( A. fib) Abdomen: Normal bowel sounds Extremities: No clubbing Medication Reconciliation Scheduled Amitriptyline Hcl (Amitriptyline Hcl), 1 TAB PO HS, (Reported) Amoxicillin/Potassium Clav (Augmentin 875-125 Tablet), 1 EACH PO BID Atorvastatin 10MG (Lipitor 10MG), 1 TAB PO DAILY, (Reported) Calcium Carbonate/Vitamin D3 (Calcium 500 + Vit D Caplet), 1 EACH PO TID, ( Reported) Cholecalciferol (Vitamin D3) (Vitamin D-3), 1,000 UNIT PO DAILY, (Reported) Cyclobenzaprine Hcl (Flexeril), 1 TAB PO BID, (Reported) Diltiazem Hcl (Diltiazem 24HR Er), 1 CAP PO DAILY, (Reported) Furosemide (Furosemide), 1 TAB PO DAILY, (Reported) Furosemide (Lasix), 20 MG PO DAILY Metoprolol Succinate (Toprol Xl), 50 MG PO DAILY Omeprazole (Omeprazole), 1 CAP PO DAILY, (Reported) Potassium Chloride (Potassium Chloride), 1 TAB PO DAILY, (Reported) Potassium Chloride (Potassium Chloride), 10 MEQ PO DAILY Warfarin Sodium (Coumadin), 2 MG PO 17 Scheduled PRN Ondansetron (Ondansetron Odt), 8 MG PO TID PRN for PAIN, (Reported) Discontinued Medications Diltiazem Hcl (Diltiazem 24HR Er), 1 CAP PO DAILY, (Reported) Discontinued Reason: Discontinue Furosemide (Lasix), 1 TAB PO DAILY, (Reported) Discontinued Reason: Discontinue Potassium Chloride (Potassium Chloride), 20 MEQ PO DAILY, (Reported) Discontinued Reason: Discontinue Warfarin Sodium (Warfarin Sodium), 1 TAB PO DAILY, (Reported) Discontinued Reason: Discontinue Warfarin Sodium (Warfarin Sodium), 2 TAB PO MON, WED, FRI, (Reported) Discontinued Reason: HOLD Warfarin Sodium (Warfarin Sodium), 1 TAB PO TUE, THUR, SAT, SUN, (Reported) Discontinued Reason: HOLD Assessment/Plan Assessment/Plan Assessment/Plan - continue warfarin Cardizem - and Toprol-XL 50 mg by mouth daily - continue to follow-up with [facility] in [place] - target INR 2-3 - management of breast cancer Problems: Patient History: Patient reports no known family medical history. MAURY PIMENTEL MD Mar 04, 2017 08:21
[2017-03-04] MEDS: CARDIZEM CD PO SCH (08:53)
[2017-03-04] MEDS: KLOR-CON 10 PO SCH (08:53)
[2017-03-04] MEDS: PROTONIX PO SCH (08:53)
[2017-03-04] MEDS: VITAMIN D PO SCH (08:53)
[2017-03-04] MEDS: LIPITOR PO SCH (08:54)
[2017-03-04] MEDS: LASIX PO SCH (08:54)
[2017-03-04] MEDS: LASIX IV SCH (08:54)
[2017-03-04] MEDS: CALTRATE PO SCH (08:57)
[2017-03-04] MEDS: [UNRECOGNIZED DRUG - OTHER] PO SCH (08:57)
[2017-03-04] MEDS ORDERED: TOPROL XL PO SCH (09:00)
--- NOTE | 2017-03-04 10:00 | NUR ---
PT DISCHARGED OFF OF FLOOR VIA WHEELCHAIR. PT UNDERSTANDS ALL DISCHARGE INFORMATION AND FOLLOW UP WITH PCP FOR PT/INR CHECK. PT UNDERSTANDS NEW MEDICATION OF TOPOROL XL. PT LEAVES FLOOR VIA WHEELCHAIR ACCOMPANIED BY DAUGHTER. NO FURTHER QUESTIONS OR CONCERNS NOTED AT THIS TIME.
--- NOTE | 2017-03-04 10:24 | NUR ---
PORTABLE O2: SS WAS NOTIFIED BY Sacha VALADEZ RN THAT PT NEEDED PORTABLE TANKS TO MAKE IT BACK HOME IN [place], [place] ON Tuesday03/10/17. SS CALLED PT'S HOME O2 PROVIDER, [facility] AND SPOKE TO ADINA REGARDING PT NEEDING PORTABLE TANKS FOR HER TRIP BACK. ADINA STATED "WE DO NOT SERVICE THAT AREA AND DO NOT HAVE A LOCATION WITHIN A 100 MILES, SO PT WILL NEED TO UTILIZE A LOCAL AGENCIES". SS CONTACTED IGNACIA WITH [facility] SINCE THEY ARE [place] AND IGNACIA STATED" WE HAVE A SISTER FACILITY IN [place] SO PT COULD PURCHASE A FEW 02 TANKS FOR 15$ A TANK TO GET HER BACK HOME AND RETURN THE TANKS AT THE SISTER FACILITY ONCE SHE GET HOME". SS NOTIFIED PT AND SHE WAS HANDED A PRESCRIPTION TO GET PORTABLE O2 THROUGH [facility] TO GET HER BACK HOME. NO FURTHER SS NEEDS NOTED AT THIS TIME.
[2017-03-04 11:18] VITALS: BP 133/74
--- NOTE | 2017-03-04 19:05 | DSH ---
DATE OF DISCHARGE: 03/04/2017 ADMITTING DIAGNOSES: 1. Post-obstructive pneumonia with cough and fever. 2. Atrial fibrillation with rapid ventricular response with shortness of breath. 3. Hypertension, chronic diastolic congestive heart failure, type 2 diabetes mellitus, hyperlipidemia and history of breast cancer. DISCHARGE DIAGNOSES: 1. Post-obstructive pneumonia with shortness of breath, on oxygen. 2. Chronic atrial fibrillation with resolved rapid ventricular response with shortness of breath. 3. Hypertension, hypertensive heart disease, diabetes, and hyperlipidemia. HOSPITAL COURSE: This patient is a very pleasant 81-year-old female who came with cough and fever. X-rays and CAT scans did show a post-obstructive pneumonia. She was started on IV Levaquin with some breathing treatments. She did have rapid ventricular response with her underlying atrial fibrillation. Her home Cardizem was continued and p.o. Toprol was added. Heart rate is much improved and in the 70s now. She is clinically improving. She is afebrile. O2 sats are up to 96% on 2 liters. She is on oxygen at home. She gets short winded easily and I explained to her that it is her underlying AFib as well as her pneumonia that are contributing to her symptoms and that she should just take it easy when she goes home. She is afebrile. She is feeling better. At this point, an echo was done in the hospital that showed preserved EF with diastolic dysfunction and mild aortic stenosis with severe tricuspid regurgitation, but at this point she is tolerating p.o. and breathing better. Vital signs are stable. She will be discharged today. She is living at her daughter's home for now. She is to follow up with her doctors in [place] next week. We will continue her home medications. We have added Lasix 20 mg a day with potassium 10 mEq a day. We have added Toprol-XL and we changed her Coumadin to 2 mg every day for now. She will be followed up with her doctors in [place] for the PT/INR as well as her lung mass and her heart as well. I am going to put her on Augmentin 875 twice a day for 7 more days to treat her post-obstructive pneumonia and resume her breathing treatments at home and continue oxygen at all times and I have explained to her she can keep herself at 1-2 liters during the day, but 2 liters at night for the time being and she is to use her incentive spirometry and flutter valve frequently at home and she will continue a ADA cardiac diet and again activity as tolerated, but no strenuous activity. Alyson Barnett MD DR: NUPUR/abel JOB# [id number]
== END 2017-03-04 11:05 | disposition home or self-care (01) | DRG 193 ==
LOC: ER 07:38 → MS 09:47
PROVIDERS: ADMIT Internal Medicine; ATTEND Pediatrics
DX: J18.9 Pneumonia, unspecified organism (principal); I50.33 Acute on chronic diastolic (congestive) heart failure; J96.11 Chronic respiratory failure with hypoxia; C34.90 Malignant neoplasm of unspecified part of unspecified bronchus or lung; D68.2 Hereditary deficiency of other clotting factors; I11.0 Hypertensive heart disease with heart failure; E11.9 Type 2 diabetes mellitus without complications; E78.5 Hyperlipidemia, unspecified; D63.8 Anemia in other chronic diseases classified elsewhere; E78.00 Pure hypercholesterolemia, unspecified; G89.29 Other chronic pain; I48.2 Chronic atrial fibrillation; J45.909 Unspecified asthma, uncomplicated; C50.919 Malignant neoplasm of unspecified site of unspecified female breast; I08.2 Rheumatic disorders of both aortic and tricuspid valves; I48.0 Paroxysmal atrial fibrillation; Z79.01 Long term (current) use of anticoagulants; Z99.81 Dependence on supplemental oxygen; Z90.710 Acquired absence of both cervix and uterus; Z88.1 Allergy status to other antibiotic agents; Z88.2 Allergy status to sulfonamides; Z79.899 Other long term (current) drug therapy; Z92.3 Personal history of irradiation
CPT/HCPCS: 36415; 71010; 71250; 72100; 80048; 80053; 80061; 82550; 82553; 83880; 84443; 84484; 85025; 85379; 85610; 85730; 86677; 87040; 93005; 93307; 94640; 94667; 94668; 96365; 96375; 99285; J0745; J1642; J1956; J3480; J3490; J7050; J7620; Q0162; J1940